=== PATIENT | female | born 1980 | race Caucasian/White ===

== ENCOUNTER 2019-07-11 07:54 | Day surgery (SDC) | payer OTHER ==
[~2019-07-11 07:54] MED LIST: NAPROXEN500 MG PO; ZYRTEC10 M3 PO
[2019-07-11] MEDS ORDERED: ULTRACET PO (13:16)
== END 2019-07-11 16:10 | disposition home or self-care (01) ==
LOC: CIR.AMB 07:54
DX: D17.0 Benign lipomatous neoplasm of skin and subcutaneous tissue of head, face and neck (principal)